=== PATIENT | female | born 1950 | race Caucasian/White ===

== ENCOUNTER → 2017-01-17 | Outpatient (CLI) | payer MEDICARE, OTHER | LOC: MAMO 13:17 | DX: Z12.31 Encounter for screening mammogram for malignant neoplasm of breast (principal); R92.8 Other abnormal and inconclusive findings on diagnostic imaging of breast | CPT/HCPCS: G0202 ==

== ENCOUNTER → 2017-01-30 | Outpatient (CLI) | payer MEDICARE, OTHER | LOC: MAMO 01-24 08:00 | DX: N64.89 Other specified disorders of breast (principal) | CPT/HCPCS: G0206 ==

== ENCOUNTER → 2021-06-28 | Outpatient (CLI) | payer MEDICARE, OTHER | LOC: KOH-I 14:14 | DX: J32.9 Chronic sinusitis, unspecified (principal) | CPT/HCPCS: 70486 ==

== ENCOUNTER → 2022-01-18 | Outpatient (CLI) | payer MEDICARE | LOC: KOH-I 08:30 | DX: M25.551 Pain in right hip (principal); M06.9 Rheumatoid arthritis, unspecified; M16.11 Unilateral primary osteoarthritis, right hip; R93.6 Abnormal findings on diagnostic imaging of limbs; M25.451 Effusion, right hip | CPT/HCPCS: 73721 ==

== ENCOUNTER → 2022-03-28 | Outpatient (CLI) | payer MEDICARE ==
[~2022-03-28] VITALS: Ht 157.5 cm; Wt 78.5 kg
[~2022-03-28] MED LIST: AREDS PO; ATORVASTATIN CA40 MG PO; FUROSEMIDE20 MG PO; HYDROXYCHLOROQ200 MG PO; ISOSORBIDE MON120 MG PO; NEXIUM40 MG PO; PAIN RELIEF500 M1 PO; POTASSIUM99 M3 PO; SPIRONOLACTONE25 MG PO; ZEBETA 5 MG TAB5 MG PO; [UNRECOGNIZED DRUG - OTHER]
[2022-03-28 08:58] LABS: HEMOGLOBIN 10.8 gm/dl (12.3-15.3); RED BLOOD COUNT 4.07 M/UL (4.00-5.10); WHITE BLOOD COUNT 5.1 K/UL (4.5-11.0)
[2022-03-28 09:30] LABS: BUN/CREATININE RATIO 24 (0-10)
== END ==
LOC: OPSV2 07:44 → EDSTATUS 08:00
PROVIDERS: Orthopaedic Surgery
DX: Z01.818 Encounter for other preprocedural examination (principal); M16.11 Unilateral primary osteoarthritis, right hip; R00.1 Bradycardia, unspecified
CPT/HCPCS: 36415; 71046; 80053; 85025; 85610; 85652; 85730; 86140; 93005

== ENCOUNTER → 2022-04-10 | Outpatient (CLI) | payer MEDICARE ==
[~2022-04-10] MED LIST changes: +ACETAMINOPHEN500 MG PO; -AREDS PO; +ELIQUIS 2.5 MG2.5 MG PO; +PRESERVISION A1 EACH PO; +ROXICODONE5 MG PO; +VITAMIN D-40010 MCG PO
[2022-04-10 09:32] LABS: BUN/CREATININE RATIO 35 (0-10)
== END ==
LOC: LAB 08:29
PROVIDERS: Orthopaedic Surgery
DX: Z01.812 Encounter for preprocedural laboratory examination (principal)
CPT/HCPCS: 36415; 80048; 86850; 86900; 86901

== ENCOUNTER 2022-04-11 05:10 | Inpatient (IN) | payer MEDICARE ==
[~2022-04-11] VITALS: Ht 154.9 cm; Wt 79.8 kg
[~2022-04-11 05:10] MED LIST changes: -ACETAMINOPHEN500 MG PO; -ELIQUIS 2.5 MG2.5 MG PO; -ROXICODONE5 MG PO; -VITAMIN D-40010 MCG PO
[2022-04-11] MEDS ORDERED: VITAMIN D-40010 MCG PO (06:28)
[2022-04-11] MEDS ORDERED: ROXICODONE5 MG PO (11:07)
[2022-04-12] MEDS ORDERED: ELIQUIS 2.5 MG2.5 MG PO (09:25)
[2022-04-12] MEDS ORDERED: PAIN RELIEF500 M1 PO (09:35)
[2022-04-12] MEDS ORDERED: ACETAMINOPHEN500 MG PO (09:50)
== END 2022-04-12 12:02 | disposition home or self-care (01) | DRG 470 ==
LOC: OR 05:10 → EDSTATUS 07:30 → OR 07:30 → CCU 19:31 → OR 19:32 → CCU 04-12 12:02
PROVIDERS: ADMIT Orthopaedic Surgery
PROC: 0SR903A Replacement of Right Hip Joint with Ceramic Synthetic Substitute, Uncemented, Open Approach (ICD-10-PCS; principal; 2022-04-11 07:30)
DX: M16.11 Unilateral primary osteoarthritis, right hip (principal); M87.851 Other osteonecrosis, right femur; I34.0 Nonrheumatic mitral (valve) insufficiency; Z20.822 Contact with and (suspected) exposure to COVID-19; K21.9 Gastro-esophageal reflux disease without esophagitis; G89.29 Other chronic pain; K76.0 Fatty (change of) liver, not elsewhere classified; I25.10 Atherosclerotic heart disease of native coronary artery without angina pectoris; M06.851 Other specified rheumatoid arthritis, right hip; Z98.891 History of uterine scar from previous surgery; Z98.890 Other specified postprocedural states; Z56.0 Unemployment, unspecified; Z90.710 Acquired absence of both cervix and uterus
CPT/HCPCS: 72170; 76000; 97116-GP-CQ; 97161; 97166; 97530; 97530-GP-CQ; 97535; C1776; J0171; J0690; J1100; J1170; J2001; J2274; J2405; J2704; J2710; J2795; J3010; J3370; J7050